=== PATIENT | female | born 1930 | race Caucasian/White ===

== ENCOUNTER → 2019-02-15 | Outpatient (CLI) | payer BC ==
[2013-12-19 10:17] VITALS: BP 160/86
[~2019-02-15] MED LIST: ASPI-482 PO; BUPIVACAINE MPF 0.5% 10 ML VIAL. IJ ONE; BUPIVACAINE MPF 0.5% 30 ML VIAL. IJ ONE; IOHEXOL 300 MG/ML 50 ML VIAL. IJ ONE; LIDOCAINE WITH 8.4% SOD BICARB 3 ML DISP.SYRIN. INJ ONE; LISI2.5T PO; LOVA10TA PO; OXYB1PAT4 TD; methylPREDNISolone ACETATE 80 MG/ML VIAL. IM ONE
--- NOTE | 2019-02-15 17:34 | RAD ---
Examination: ARTHROCENT [facility] JT ASP/INJ RT History: Right hip osteoarthritis. Pain. Comparison/Correlation: 02/09/2019 right hip x-ray exam Findings: Risks and benefits of right hip joint injection were discussed with the patient. Informed consent was obtained. Fluoroscopy was utilized for 0.9 minutes. Total 4 images were acquired. Severe right hip joint degenerative remodeling is present. 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 Cleansing with Betadine was performed overlying the site of expected needle placement. A total of 5 cc 1 percent lidocaine was administered. 20-gauge spinal needle was placed under fluoroscopic guidance into the right hip joint capsule laterally. Contrast was injected and location of needle placement was confirmed. 80 mg Depo-Medrol and 8 cc 0.5 percent bupivacaine were administered into the right hip joint capsule. Patient tolerated procedure well without immediate complications. Impression: Successful right hip joint administration of Depo-Medrol and bupivacaine. Electronically signed by: Miguel Schaeffer MD (02/15/2019 5:31 PM) [facility]
== END ==
LOC: RAD 09:40
PROVIDERS: ATTEND Orthopaedic Surgery Sports Medicine
DX: M19.011 Primary osteoarthritis, right shoulder (principal)
CPT/HCPCS: 20610; 77002; J1040; Q9967